=== PATIENT | female | born 1990 | race Hispanic/Latino ===

== ENCOUNTER 2018-11-19 21:08 | Emergency (ER) | payer SELFPAY ==
[2018-11-19] MEDS ORDERED: METOCLOPRAMIDE 10 MG/2 ML VIAL ONE (21:17)
[2018-11-19 21:28] LABS: BASOPHILS % (AUTO) 0.3 % (0.0-5.0); EOSINOPHILS % (AUTO) 0.8 % (0.0-8.0); HEMATOCRIT 37.4 % (36-48); LYMPHOCYTES % (AUTO) 36.6 % (21.0-51.0); MEAN CORPUSCULAR HEMOGLOBIN 28.9 pg (27.0-33.0); MEAN CORPUSCULAR HGB CONC 33.6 g/dL (32.0-36.0); MEAN CORPUSCULAR VOLUME 86.1 fL (79-99); MONOCYTES % (AUTO) 4.7 % (3.0-13.0); NEUTROPHILS % (AUTO) 57.6 % (40.0-77.0); PLATELET COUNT (AUTO) 276 K/uL (130-400); RED BLOOD CELL COUNT(AUTO) 4.35 MIL/uL (4.00-5.50); RED CELL DISTRIBUTION WIDTH 13.4 % (11.0-15.5); WHITE BLOOD COUNT (AUTO) 8.4 K/uL (4.8-10.8)
[2018-11-19 21:40] LABS: CREATININE 0.8 mg/dL (0.5-1.5); POTASSIUM 3.3 mmol/L (3.5-5.1)
[2018-11-19 21:43] LABS: ALBUMIN 3.8 g/dL (3.5-5.0); BILIRUBIN,TOTAL 0.4 mg/dL (0.2-1.0); TOTAL PROTEIN, SERUM 7.6 g/dL (6.0-8.3)
[2018-11-19] MEDS ORDERED: POTASSIUM CHLORIDE 20 MEQ ERTAB PO ONE (21:55)
[2018-11-19] MEDS ORDERED: DIAZEPAM 5 MG TABLET ONE (21:56)
== END 2018-11-19 23:26 | disposition home or self-care (01) ==
LOC: EDH 21:08
DX: F41.1 Generalized anxiety disorder (principal); R42 Dizziness and giddiness; E87.6 Hypokalemia; R94.31 Abnormal electrocardiogram [ECG] [EKG]; I45.6 Pre-excitation syndrome
CPT/HCPCS: 36415; 80053; 82948; 85025; 93005; 96361; 96374; 99285; J2765

== ENCOUNTER 2019-07-31 08:33 | Inpatient (IN) | payer SELFPAY ==
[~2019-07-31] VITALS: Ht 162.6 cm; Wt 136.1 kg
[2019-07-31 09:32] LABS: BASOPHILS % (AUTO) 0.3 % (0.0-5.0); EOSINOPHILS % (AUTO) 0.7 % (0.0-8.0); HEMATOCRIT 41.7 % (36-48); LYMPHOCYTES % (AUTO) 22.2 % (21.0-51.0); MEAN CORPUSCULAR HEMOGLOBIN 28.8 pg (27.0-33.0); MEAN CORPUSCULAR HGB CONC 32.1 g/dL (32.0-36.0); MEAN CORPUSCULAR VOLUME 89.7 fL (79-99); MONOCYTES % (AUTO) 6.5 % (3.0-13.0); NEUTROPHILS % (AUTO) 69.8 % (40.0-77.0); PLATELET COUNT (AUTO) 274 K/uL (130-400); RED BLOOD CELL COUNT(AUTO) 4.65 MIL/uL (4.00-5.50); RED CELL DISTRIBUTION WIDTH 13.2 % (11.0-15.5); WHITE BLOOD COUNT (AUTO) 10.3 K/uL (4.8-10.8)
[2019-07-31] MEDS ORDERED: DiphenhydrAMINE HCL 50 MG/ML VIAL ONE (09:37)
[2019-07-31] MEDS ORDERED: ONDANSETRON HCL 4 MG/2 ML VIAL ONE ×2 (09:37→15:57)
[2019-07-31] MEDS ORDERED: KETOROLAC TROMETHAMINE 30MG/ML ONE ×2 (09:38→17:17)
[2019-07-31] MEDS ORDERED: DICYCLOMINE HCL 10 MG/ML 2ML AMP IM ONE (09:38)
[2019-07-31] MEDS ORDERED: SODIUM CHLORIDE 0.9% 1000ML 1,000 ML IV ONE (09:42)
[2019-07-31 09:47] LABS: CREATININE 0.8 mg/dL (0.5-1.5)
[2019-07-31 10:11] LABS: ALBUMIN 3.6 g/dL (3.5-5.0); BILIRUBIN,TOTAL 0.5 mg/dL (0.2-1.0); TOTAL PROTEIN, SERUM 7.9 g/dL (6.0-8.3)
[2019-07-31 12:05] LABS: APPEARANCE,URINE Cloudy (CLEAR); BILIRUBIN,URINE Negative (NEGATIVE); COLOR,URINE Yellow (YELLOW); GLUCOSE, URINE (UA) Negative (NEGATIVE); KETONES,URINE Negative (NEGATIVE); LEUKOCYTE ESTERASE ,URINE Trace (NEGATIVE); NITRATE,URINE Negative (NEGATIVE); OCCULT BLOOD,URINE Negative (NEGATIVE); PH,URINE 6.5 (5.0-8.0); PROTEIN,URINE Trace mg/dL (NEGATIVE)
[2019-07-31 12:24] LABS: BACTERIA,URINE Rare /HPF (None Seen); RBC,URINE 0-1 /HPF (0-1)
[2019-07-31 12:25] LABS: MUCUS,URINE Few LPF (None Seen); SQUAMOUS EPITHELIAL CELL,UR Few /HPF (0-2)
[2019-07-31] MEDS: DEXTROSE 5%-LACTATED RINGERS 1,000 ML IV SCH (13:15)
[2019-07-31] MEDS ORDERED: IOHEXOL 350 MG/ML 100ML INFUS..BTL IV ONE (13:58)
[2019-07-31] MEDS ORDERED: ONDANSETRON HCL 4 MG/2 ML VIAL IV PRN (14:00)
[2019-07-31] MEDS ORDERED: ACETAMINOPHEN 325 MG TAB PO PRN (14:00)
[2019-07-31] MEDS ORDERED: LACTULOSE 20 GM/30 ML UDCUP PO PRN (14:00)
[2019-07-31] MEDS ORDERED: MORPHINE SULFATE 2 MG/ML 1ML SYG ONE (15:57)
[2019-07-31] MEDS ORDERED: KETOROLAC TROMETHAMINE 30MG/ML IV STA (17:14)
[2019-07-31 19:30] LABS: AMPHET/METH SCREEN,URINE NEGATIVE (NEGATIVE); BARBITURATE SCREEN, URINE NEGATIVE (NEGATIVE); BENZODIAZEPINES SCREEN,URINE NEGATIVE (NEGATIVE); CANNABINOID SCREEN,URINE NEGATIVE (NEGATIVE); COCAINE SCREEN,URINE NEGATIVE (NEGATIVE); OPIATE SCREEN,URINE NEGATIVE (NEGATIVE); PHENCYCLIDINE SCREEN,URINE NEGATIVE (NEGATIVE)
[2019-07-31 20:00] VITALS: BP 152/74
[2019-07-31] MEDS: FAMOTIDINE/PF 20 MG/2 ML VIAL IV SCH (20:24)
--- NOTE | 2019-07-31 20:30 | NUR ---
MEDS SHIFT ASSESSMENT DONE, PLEASE REFER TO CHART. DUE MEDS ADMINISTERED, TOLERATED WELL. KEPT RESTED AND COMFORTABLE. CALL LIGHT WITHIN REACH. RE-ITERATED NPO STATUS. WILL MONITOR PT. Addendum: 08/01/19 at 0116 by CARMEN FIGUEROA RN RN Amended: Links added.
[2019-07-31 23:51] VITALS: BP 143/75
[2019-08-01] MEDS: ZOSYN 3.375GM+NS 50ML 50 ML IV SCH ×3 (00:06→15:17)
[2019-08-01] MEDS: KETOROLAC TROMETHAMINE 15MG/ML IV PRN ×3 (00:12→14:51)
--- NOTE | 2019-08-01 00:12 | NUR ---
ORDERS NEW ORDERS RECEIVED FROM , PLEASE REFER TO CPOE. STARTED ON IV ZOSYN. PT COMPLAINTS OF ABDOMINAL PAINS. MEDICATED WITH TORADOL IV. KEPT NPO. KEPT RESTED AND COMFORTABLE IN BED. SPOUSE AT BEDSIDE IN ATTENDANCE TO NEEDS AT THIS TIME. WILL RE-ASSESS PT. Addendum: 08/01/19 at 0042 by CARMEN FIGUEROA RN RN Amended: Links added.
--- NOTE | 2019-08-01 02:00 | NUR ---
ROUNDS PT RESTING WELL, FAIRLY ASLEEP WITH RESPIRATIONS EVEN AND UNLABORED. NO NOTED DISTRESS. KEPT UNDISTURBED FOR NOW WILL MONITOR PT.
[2019-08-01] MEDS: DEXTROSE 5%-LACTATED RINGERS 1,000 ML IV SCH ×4 (02:14→20:37)
[2019-08-01] MEDS: MORPHINE SULFATE 2 MG/ML 1ML SYG IVP PRN ×2 (03:35→06:51)
[2019-08-01 04:00] VITALS: BP 118/70
[2019-08-01 05:36] LABS: BASOPHILS % (AUTO) 0.3 % (0.0-5.0); EOSINOPHILS % (AUTO) 1.7 % (0.0-8.0); HEMATOCRIT 36.4 % (36-48); LYMPHOCYTES % (AUTO) 19.4 % (21.0-51.0); MEAN CORPUSCULAR HEMOGLOBIN 28.4 pg (27.0-33.0); MEAN CORPUSCULAR HGB CONC 31.3 g/dL (32.0-36.0); MEAN CORPUSCULAR VOLUME 90.5 fL (79-99); MONOCYTES % (AUTO) 7.3 % (3.0-13.0); NEUTROPHILS % (AUTO) 70.8 % (40.0-77.0); PLATELET COUNT (AUTO) 215 K/uL (130-400); RED BLOOD CELL COUNT(AUTO) 4.02 MIL/uL (4.00-5.50); RED CELL DISTRIBUTION WIDTH 13.4 % (11.0-15.5); WHITE BLOOD COUNT (AUTO) 9.8 K/uL (4.8-10.8)
[2019-08-01 06:08] LABS: ALBUMIN 3.1 g/dL (3.5-5.0); CREATININE 0.8 mg/dL (0.5-1.5); POTASSIUM 3.6 mmol/L (3.5-5.1)
[2019-08-01 06:33] LABS: BILIRUBIN,TOTAL 0.7 mg/dL (0.2-1.0); TOTAL PROTEIN, SERUM 6.9 g/dL (6.0-8.3)
[2019-08-01 08:00] VITALS: BP 117/68
--- NOTE | 2019-08-01 08:19 | NUR ---
DR. PEARSON PAGED RE; CHOLELITHIASIS PENDING CALL BACK
[2019-08-01] MEDS: FAMOTIDINE/PF 20 MG/2 ML VIAL IV SCH ×2 (08:53→20:44)
[2019-08-01] MEDS: ENOXAPARIN SODIUM 30 MG/0.3 ML SQ SCH (08:57)
[2019-08-01 11:31] VITALS: BP 123/76
--- NOTE | 2019-08-01 12:00 | NUR ---
DR. RED AWARE OF CONSULT FOR CHOLECYSTITIS STATES WILL SEE PATIENT TODAY FOR POSSIBLE SURGERY TOMORROW NO ORDERS YET.
--- NOTE | 2019-08-01 12:18 | NUR ---
DR. 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
[2019-08-01] MEDS ORDERED: HYDROMORPHONE HCL 0.5 MG/0.5 ML ML ONE (13:04)
[2019-08-01] MEDS ORDERED: HYDROMORPHONE 1 MG/1 ML AMP IVP PRN (13:30)
[2019-08-01 16:00] VITALS: BP 127/74
--- NOTE | 2019-08-01 16:42 | NUR ---
INITIAL MET W PT AND MULTIPLE FAMILY MEMBERS. PT STATES SHE IS indp, employed, no dme/hh/prov, confirms no social, but is employed and has insurance it will kick in in just a few days (?) community resource pkt pending, bad experience w [facility], wants info on other options dcp home after gb surgery. CM to follow Addendum: 08/01/19 at 1643 by GERMAN HANDY RN CM Amended: Links added.
--- NOTE | 2019-08-01 18:44 | NUR ---
DR. Gabriel linder pt complaining of severe RUQ pain no other pain meds to give for breakthrough pain.
--- NOTE | 2019-08-01 18:59 | NUR ---
DR. RED RETURNED PAGE STATES GIVE ATIVAN 1MG Q8HRS FOR ANXIETY, NO EMERGENCY SURGERY IS REQUIRED AT THIS TIME. NO OTHER ORDERS.
[2019-08-01] MEDS: HYDROMORPHONE 1 MG/1 ML AMP IVP PRN (19:00)
[2019-08-01] MEDS ORDERED: LORAZEPAM 2 MG/ML 1 ML VIAL IVP PRN (19:15)
[2019-08-01] MEDS ORDERED: KETOROLAC TROMETHAMINE 30MG/ML ONE (20:55)
[2019-08-01 21:15] VITALS: BP 140/89
[2019-08-01] MEDS: KETOROLAC TROMETHAMINE 30MG/ML IV PRN (21:21)
[2019-08-02] VITALS (27 sets, daily range): BP systolic 140–188; BP diastolic 80–103
[2019-08-02] MEDS: ZOSYN 3.375GM+NS 50ML 50 ML IV SCH ×3 (00:02→20:36)
--- NOTE | 2019-08-02 02:05 | NUR ---
Notified Aj regarding temperature 101.1. He ordered for blood cultures. Ice packs applied. Will monitor patient closely
[2019-08-02] MEDS ORDERED: SODIUM CHLORIDE 0.9% 500ML 500 ML IV ONE (02:30)
[2019-08-02] MEDS: KETOROLAC TROMETHAMINE 30MG/ML IV PRN ×2 (03:12→10:02)
[2019-08-02] MEDS: DEXTROSE 5%-LACTATED RINGERS 1,000 ML IV SCH ×2 (05:53→09:57)
[2019-08-02 06:16] LABS: BASOPHILS % (AUTO) 0.2 % (0.0-5.0); EOSINOPHILS % (AUTO) 0.7 % (0.0-8.0); HEMATOCRIT 36.1 % (36-48); LYMPHOCYTES % (AUTO) 16.8 % (21.0-51.0); MEAN CORPUSCULAR HEMOGLOBIN 28.3 pg (27.0-33.0); MEAN CORPUSCULAR HGB CONC 31.3 g/dL (32.0-36.0); MEAN CORPUSCULAR VOLUME 90.5 fL (79-99); MONOCYTES % (AUTO) 7.9 % (3.0-13.0); NEUTROPHILS % (AUTO) 73.8 % (40.0-77.0); PLATELET COUNT (AUTO) 227 K/uL (130-400); RED BLOOD CELL COUNT(AUTO) 3.99 MIL/uL (4.00-5.50); WHITE BLOOD COUNT (AUTO) 10.4 K/uL (4.8-10.8)
[2019-08-02 06:33] LABS: BILIRUBIN,TOTAL 0.7 mg/dL (0.2-1.0); CREATININE 0.9 mg/dL (0.5-1.5); POTASSIUM 3.5 mmol/L (3.5-5.1); TOTAL PROTEIN, SERUM 7.2 g/dL (6.0-8.3)
[2019-08-02] MEDS: FAMOTIDINE/PF 20 MG/2 ML VIAL IV SCH ×2 (08:26→20:36)
[2019-08-02] MEDS: ENOXAPARIN SODIUM 30 MG/0.3 ML SQ SCH (09:00)
--- NOTE | 2019-08-02 10:10 | NUR ---
TO SURGERY , VIA BED ,WITH STAFF AT THE BEDSIDE, REVIEW CONSENT , AND ID BAND,
[2019-08-02] MEDS ORDERED: LACTATED RINGERS 1000ML 1,000 ML IV ONE (10:16)
[2019-08-02] MEDS ORDERED: MIDAZOLAM HCL 1 MG/ML 2ML VIAL ONE (10:52)
[2019-08-02] MEDS ORDERED: LIDOCAINE HCL-MPF 1% 5ML AMP IJ ONE (10:52)
[2019-08-02] MEDS ORDERED: PROPOFOL 10 MG/ML 20ML VIAL IV ONE (10:52)
[2019-08-02] MEDS ORDERED: ROCURONIUM 10MG/1ML SYR 10 MG/ML ML ONE (10:53)
[2019-08-02] MEDS ORDERED: FENTANYL CITRATE PF 50 MCG/1 ML 5ML AMP IV ONE (10:53)
[2019-08-02] MEDS ORDERED: HEPARIN SODIUM 1000UNIT/ML 10ML VIAL ONE (11:18)
[2019-08-02] MEDS ORDERED: ONDANSETRON HCL 4 MG/2 ML VIAL ONE (11:41)
[2019-08-02] MEDS ORDERED: GLYCOPYRROLATE 1 MG/5 ML SYRINGE ONE (11:41)
[2019-08-02] MEDS ORDERED: NEOSTIGMINE 5MG/5ML SYR IV ONE (11:41)
[2019-08-02] MEDS ORDERED: DEXAMETHASONE SOD PHOSPHATE 10MG/ML 1ML VIAL ONE (11:41)
[2019-08-02 13:11] LABS: HEPATITIS A ANTIBODY IGM Negative (Negative); HEPATITIS B CORE IGM Negative (Negative); HEPATITIS Bs ANTIGEN SCREEN P Negative (Negative)
[2019-08-02] MEDS: HYDROMORPHONE 1 MG/1 ML AMP IVP PRN (13:39)
--- NOTE | 2019-08-02 14:20 | NUR ---
PT BACK FROM SURGERY, , PT AAO X 3 , POSTOP V/S STARTED , WITH A REVIEW OF DR. PARDO . ASSESS . ABD . NOTED BANDAID TO UPPER AREA OF MID UMBICIAL . SITE AND UPPER AREA OF ABD 2 ON TOP AND ONE TO RT SIDE OF ABD , POSTOP V/S STARTED ,WITH CALL LIGHT IN REACH,, BED LEVEL DOWN , FAMILY AT THE BEDSIDE ,
--- NOTE | 2019-08-02 15:10 | NUR ---
RD NOTIFICATION DX: CHOLECYSTITIS. NPO AT THIS TIME. S/P SURGERY. LABS REVIEWED. MEDS REVIEWED. SKIN IS INTACT. PT CONSUMES REGULAR DIET HOME PER FAMILY. RD PROVIDED LOW FAT DIET AND NUTRITION EDUCATION TO FOLLOW ONCE DIET IS ADVANCED AT HOME. FAMILY VERBALIZED UNDERSTANDING AND EDU HANDOUTS WERE PROVIDED. ADVANCE DIET TOLERATED TO CLEAR LIQUIDS, FULL LIQUIDS, LASTLY LOW FAT DIET NUTRITION EDUCATION COMPLETED Addendum: 08/02/19 at [address] Amended: Links added.
--- NOTE | 2019-08-02 15:15 | NUR ---
NUTRITION EDUCATION COMPLETED PT CONSUMES REGULAR DIET HOME PER FAMILY. RD PROVIDED LOW FAT DIET AND NUTRITION EDUCATION TO FOLLOW ONCE DIET IS ADVANCED AT HOME. FAMILY VERBALIZED UNDERSTANDING AND EDU HANDOUTS WERE PROVIDED. Addendum: 08/02/19 at [address] Amended: Links added.
[2019-08-02] MEDS: LACTATED RINGERS 1000ML 1,000 ML IV SCH (20:00)
[2019-08-02] MEDS: ACETAMINOPHEN-CODEINE 300/30MG TAB PO PRN (20:37)
[2019-08-03] MEDS: KETOROLAC TROMETHAMINE 30MG/ML IV PRN (02:10)
[2019-08-03] MEDS: LACTATED RINGERS 1000ML 1,000 ML IV SCH (02:12)
[2019-08-03 03:49] VITALS: BP 121/78
[2019-08-03] MEDS: ZOSYN 3.375GM+NS 50ML 50 ML IV SCH ×2 (05:09→13:00)
[2019-08-03 05:54] LABS: BASOPHILS % (AUTO) 0.1 % (0.0-5.0); EOSINOPHILS % (AUTO) 0.1 % (0.0-8.0); HEMATOCRIT 34.1 % (36-48); MEAN CORPUSCULAR HEMOGLOBIN 28.9 pg (27.0-33.0); MEAN CORPUSCULAR HGB CONC 32.3 g/dL (32.0-36.0); MEAN CORPUSCULAR VOLUME 89.5 fL (79-99); MONOCYTES % (AUTO) 8.4 % (3.0-13.0); NEUTROPHILS % (AUTO) 78.8 % (40.0-77.0); PLATELET COUNT (AUTO) 237 K/uL (130-400); RED BLOOD CELL COUNT(AUTO) 3.81 MIL/uL (4.00-5.50); RED CELL DISTRIBUTION WIDTH 13.1 % (11.0-15.5); WHITE BLOOD COUNT (AUTO) 14.5 K/uL (4.8-10.8)
[2019-08-03 06:12] LABS: ALBUMIN 2.7 g/dL (3.5-5.0); BILIRUBIN,TOTAL 0.5 mg/dL (0.2-1.0); CREATININE 0.8 mg/dL (0.5-1.5); POTASSIUM 3.5 mmol/L (3.5-5.1); TOTAL PROTEIN, SERUM 7.2 g/dL (6.0-8.3)
--- NOTE | 2019-08-03 07:20 | NUR ---
UP AMBULATING IN THE HALLWAY, TOLERATE WELL .
--- NOTE | 2019-08-03 07:30 | NUR ---
SITTING UP IN THE CHAIR ,NILDA PLAN OF CARE. ENCOURAGE TO COUGH AND DEEPBREATHING CARE, ABD BANDAID DRY AND CLEAN AND TOLERATE REG DIET WELL,
[2019-08-03 08:00] VITALS: BP 141/87
--- NOTE | 2019-08-03 08:40 | NUR ---
DR. RED HERE AND SPOKE WITH PT, REGARDING DISCHARGE CARE ,ASSESS HER ABD . LAP . BANDAID SITE, AND REMOVE HER BANDAID .NOTED UNDERNEATH THE STRIPS . NOTED CLEAN SITE ,WITH NO OOZING OR REDNESS .DR. RED DIRECTED NO HEAVY LIFTING , AND COULD SHOWER AND GET INCISIONAL SITE WET AND WORK STATUS RETURN , AND IF ANY COMPLICATION TO SEE HIM IN HIS OFFICE, REVIEW QUESTION AND CARE.
[2019-08-03] MEDS: HYDROMORPHONE 1 MG/1 ML AMP IVP PRN (08:43)
[2019-08-03] MEDS: FAMOTIDINE/PF 20 MG/2 ML VIAL IV SCH (08:43)
[2019-08-03] MEDS: ENOXAPARIN SODIUM 30 MG/0.3 ML SQ SCH (08:44)
[2019-08-03 12:00] VITALS: BP 157/88
[2019-08-03] MEDS ORDERED: AMOX-429 PO (13:26)
[2019-08-03] MEDS ORDERED: IBUP-2077 PO (13:26)
[2019-08-03] MEDS ORDERED: ACET1TAB12 PO (13:26)
[2019-08-03] MEDS: ACETAMINOPHEN-CODEINE 300/30MG TAB PO PRN (13:38)
--- NOTE | 2019-08-03 15:20 | NUR ---
DISCHARGE SUMMARY WAS REVIEW WITH PT. . REVIEW HOME PRECRIPTIONS, AND PAIN MEDICATIONS AND FOLLOWUP WITH DR. RED IN 2 WEEKS PT STATED THAT SHE WOUND CALL THE OFFICE TO MAKE THE APPT.. INFORMATION GIVEN, TO PT. REGARDING CARE , HOME RISK REVIEW , SL TO HER RFA, WAS DC ,WITH NO HEMATOMA NOTED , A DRSG APPLICATION ON . REVIEW THE DEEP BREATHING AT HOME ,AND CARE, DISCHARGE WITH ,
== END 2019-08-03 15:15 | disposition home or self-care (01) | DRG 418 ==
LOC: EDH 08:33 → EDHIP 08:34 → 3BH 16:55
PROVIDERS: ADMIT Internal Medicine; ATTEND Internal Medicine
PROC: 0FT44ZZ Resection of Gallbladder, Percutaneous Endoscopic Approach (ICD-10-PCS; principal; 2019-08-02 10:57)
DX: K81.0 Acute cholecystitis (principal); Z68.43 Body mass index [BMI] 50.0-59.9, adult; K75.89 Other specified inflammatory liver diseases; E66.01 Morbid (severe) obesity due to excess calories; F41.9 Anxiety disorder, unspecified; E28.2 Polycystic ovarian syndrome
CPT/HCPCS: 36415; 71046; 74178; 76705; 80053; 80074; 80305; 81001; 81025; 82150; 83690; 85025; 87040; 88304; 93005; G0378; G0480; J0500; J1100; J1170; J1200; J1644; J1650; J1885; J2250; J2405; J2543; J2704; J2710; J3010; J3490; J7030; J7040; J7120; Q9967